=== PATIENT | male | born 1965 | race Caucasian/White ===

== ENCOUNTER 2024-03-23 08:45 | Day surgery (SDC) | payer OTHER ==
[~2024-03-23] VITALS: Ht 167.6 cm; Wt 69.9 kg
[~2024-03-23 08:45] MED LIST: ALBU8.5H; ATOR1TAB21 PO; AZO1CAP2 PO; BUDE90AE; CVS1CAP2 PO; CVS500CA5 PO; FAMO40TA3 PO; FINA5TAB2 PO; IBUP80TA PO; MELO15TA28 PO; SAW500CA7 PO; TAMS1CAP17 PO; ceFAZolin SOD 2 GM in IV 1 EA IV ONE
[2024-03-23] MEDS ORDERED: LR 1,000 ML IV SCH (10:00)
[2024-03-23] MEDS ORDERED: VITA500C24 PO (10:10)
[2024-03-23] MEDS ORDERED: THERTAB52 PO (10:10)
[2024-03-23] MEDS ORDERED: TURM500C5 PO (10:10)
[2024-03-23] MEDS ORDERED: [UNRECOGNIZED DRUG - OTHER] PO (10:10)
[2024-03-23] MEDS: SCOPOLAMINE 1MG TRANSDERMAL PATCH TOP ONE (10:39)
[2024-03-23] MEDS ORDERED: MIDAZOLAM INJ 2MG/2ML VIAL As Ordered ONE (10:52)
[2024-03-23] MEDS ORDERED: ACETAMINOPHEN 1000MG/100ML IV BAG As Ordered ONE (10:52)
[2024-03-23] MEDS ORDERED: ONDANSETRON 4MG 2ML VIAL As Ordered ONE (10:52)
[2024-03-23] MEDS ORDERED: fentaNYL 250 MCG/5 ML INJECTION As Ordered ONE (10:52)
[2024-03-23] MEDS ORDERED: LIDOCAINE 2% 100MG/5ML SDV (FOR ANES.) As Ordered ONE (10:53)
[2024-03-23] MEDS ORDERED: propofoL 200 MG/20 ML VIAL As Ordered ONE (10:53)
[2024-03-23] MEDS ORDERED: ISOVUE-300 61% 100ML VIAL As Ordered ONE (11:39)
[2024-03-23] MEDS ORDERED: METOCLOPRAMIDE INJ 10MG/2ML VIAL As Ordered ONE (11:55)
[2024-03-23] MEDS ORDERED: ePHEDrine SULFATE 25 MG/5 ML(5MG/ML) SYRINGE As Ordered ONE (12:08)
[2024-03-23] MEDS ORDERED: fentaNYL 100 MCG/2 ML INJECTION IV PRN (13:30)
[2024-03-23] MEDS ORDERED: ONDANSETRON 4MG 2ML VIAL IV PRN (13:30)
[2024-03-23] MEDS ORDERED: PYRI1TAB5 PO (13:48)
[2024-03-23] MEDS ORDERED: OXYB5TAB14 PO (13:48)
[2024-03-23] MEDS ORDERED: MACR100C43 PO (13:48)
[2024-03-23 14:50] VITALS: BP 130/69; TEMP 97.7; O2SAT 96
== END 2024-03-23 15:07 | disposition home or self-care (01) ==
LOC: M SDC 08:45
PROVIDERS: ATTEND Urology
DX: N40.0 Benign prostatic hyperplasia without lower urinary tract symptoms (principal); N21.0 Calculus in bladder; E78.00 Pure hypercholesterolemia, unspecified; G47.33 Obstructive sleep apnea (adult) (pediatric); K21.9 Gastro-esophageal reflux disease without esophagitis; Z79.899 Other long term (current) drug therapy; Z88.0 Allergy status to penicillin; Z88.5 Allergy status to narcotic agent; Z88.1 Allergy status to other antibiotic agents; Z80.42 Family history of malignant neoplasm of prostate; Z86.16 Personal history of COVID-19
CPT/HCPCS: 52318; 52601; 82365; 88305; J0131; J1100; J2250; J2405; J2765; J3010

== ENCOUNTER → 2024-04-21 | Outpatient (REF) | payer OTHER ==
[~2024-04-21] MED LIST changes: +MACR100C43 PO; +OXYB5TAB14 PO; +PYRI1TAB5 PO; +THERTAB52 PO; +TURM500C5 PO; +VITA500C24 PO; +[UNRECOGNIZED DRUG - OTHER] PO; -ceFAZolin SOD 2 GM in IV 1 EA IV ONE
[2024-04-21 14:27] LABS: APPEARANCE, URINE HAZY (CLEAR); BACTERIA, URINE AUTO NEGATIVE (NEGATIVE); BILIRUBIN, URINE AUTO NEGATIVE (NEGATIVE); BLOOD, URINE BLOOD 3+ (NEGATIVE); COLOR, URINE YELLOW (YELLOW); GLUCOSE, URINE (UA) AUTO NEGATIVE (NEGATIVE); KETONE, URINE AUTO NEGATIVE (NEGATIVE); LEUKOCYTE ESTERASE, URINE AUTO 3+ (NEGATIVE); MUCUS, URINE SMALL (NEGATIVE); NITRITE, URINE AUTO NEGATIVE (NEGATIVE); PROTEIN, URINE AUTO 1+ mg/dL (NEGATIVE); RBC, URINE AUTO TNTC /HPF (0-3); SPECIFIC GRAVITY URINE AUTO 1.017 (1.002-1.035); SQUAMOUS EPITHELIAL CELL UR AU 0 /HPF (0-6); UROBILINOGEN, URINE AUTO 0.2 mg/dL (0.0-2.0); WBC, URINE AUTO 138 /HPF (0-3)
== END ==
LOC: M SMT 13:06
PROVIDERS: ATTEND Urology
DX: R31.0 Gross hematuria (principal)

== ENCOUNTER → 2024-08-22 | Outpatient (CLI) | payer OTHER ==
[2024-08-23 14:07] LABS: PSA FREE 0.2 ng/mL; PSA TOTAL 1.4 ng/mL (< OR = 4.0)
== END ==
LOC: M LAB 11:04
PROVIDERS: ATTEND Urology
DX: Z87.898 Personal history of other specified conditions (principal)